=== PATIENT | female | born 1990 | race American Indian/Alaskan Native ===

== ENCOUNTER 2022-02-01 00:24 | Emergency (ER) | payer SELFPAY ==
[2022-02-01] MEDS ORDERED: ALBUTEROL 2.5 MG/3 ML NEBU IH ONE ×3 (00:43→03:09)
[2022-02-01] MEDS ORDERED: IPRATROPIUM 0.02% NEBU 2.5 ML IH ONE ×2 (00:43→01:00)
[2022-02-01] MEDS ORDERED: SODIUM CHLORIDE 0.9% 1000 ML 1,000 ML IV ONE (01:00)
[2022-02-01 01:40] LABS: Alanine Aminotransferase 11 units/L (7-56); Albumin 4.4 g/dL (3.9-5); Blood Urea Nitrogen 5 mg/dL (7-17); Calcium 9.3 mg/dL (8.4-10.2); Hemolysis Index 2
[2022-02-01 01:42] LABS: BUN/Creatinine Ratio 8
[2022-02-01 01:50] LABS: Basophils % (Auto) 0.5 % (0.0-1.8); Eosinophils # (Auto) 0.1 K/mm3 (0.0-0.4); Eosinophils % (Auto) 1.8 % (0.0-4.3); Hematocrit 32.9 % (30.3-42.9); Hemoglobin 11.2 gm/dl (10.1-14.3); Lymphocytes # (Auto) 0.5 K/mm3 (1.2-5.4); Lymphocytes % (Auto) 7.9 % (13.4-35.0); Mean Corpuscular HGB Conc 34 % (30-34); Monocytes # (Auto) 0.4 K/mm3 (0.0-0.8); Monocytes % (Auto) 5.5 % (0.0-7.3); Platelet Count 302 K/mm3 (140-440); Red Blood Count 4.82 M/mm3 (3.65-5.03); Red Cell Distribution Width 18.6 % (13.2-15.2)
[2022-02-01 02:05] LABS: Mean Corpuscular Volume 68 fl (79-97)
--- NOTE | 2022-02-01 02:18 | XRay Report ---
CHEST 1 VIEW 02/01/2022 12:36 AM INDICATION / CLINICAL INFORMATION: Asthma. COMPARISON: None available. FINDINGS: SUPPORT DEVICES: None. HEART / MEDIASTINUM: No significant abnormality. LUNGS / PLEURA: No significant pulmonary abnormality. No significant pleural effusion. No pneumothora x. ADDITIONAL FINDINGS: No significant additional findings. IMPRESSION: 1. No acute abnormality of the chest. Signer Name: Hamilton Valencia MD Signed: 02/01/2022 2:14 AM Workstation Name: [id number]
--- NOTE | 2022-02-01 04:21 | Emergency Department Report ---
ED Asthma HPI - General Chief Complaint: Adult Asthma Stated Complaint: SOB Time Seen by Provider: 02/01/22 00:59 Source: patient, EMS Mode of arrival: Stretcher Limitations: No Limitations - History of Present Illness Initial Comments: Asthma symptoms (wheezing and ESTUARDO) Ran out of inhaler today. Was given Decadron 10mg IV and Albuterol 10mg Neb. Continues to wheeze. MD Complaint: "asthma attack", shortness of breath -: Gradual, days(s) - Related Data Allergies Allergy/AdvReac Type Severity Reaction Status Date / Time No Known Allergies Allergy Verified 02/01/22 02:28 ED Review of Systems ROS: Stated complaint: SOB Other details as noted in HPI ED Past Medical Hx - Past Medical History Previous Medical History?: Yes Hx Asthma: Yes - Surgical History Past Surgical History?: Yes Additional Surgical History: x 2 - Social History Smoking Status: Current Every Day Smoker Substance Use Type: None ED Physical Exam - General Limitations: No Limitations General appearance: alert, in no apparent distress - Head Head exam: Present: atraumatic, normocephalic - Eye Eye exam: Present: normal appearance - ENT ENT exam: Present: mucous membranes moist - Neck Neck exam: Present: normal inspection - Respiratory Respiratory exam: Present: normal lung sounds bilaterally, wheezes. Absent: respiratory distress - Cardiovascular Cardiovascular Exam: Present: regular rate, normal rhythm. Absent: systolic murmur, diastolic murmur, rubs, gallop - GI/Abdominal GI/Abdominal exam: Present: soft, normal bowel sounds - Extremities Exam Extremities exam: Present: normal inspection - Back Exam Back exam: Present: normal inspection - Neurological Exam Neurological exam: Present: alert, oriented X3 - Psychiatric Psychiatric exam: Present: normal affect, normal mood - Skin Skin exam: Present: warm, dry, intact, normal color. Absent: rash ED Course Vital Signs 02/01/22 02/01/22 02/01/22 00:40 03:07 03:25 Temperature 98 F Pulse Rate 111 H Pulse Rate [ 111 H 112 H Bilateral Throughout] Respiratory 18 Rate Respiratory 20 20 Rate [Bilateral Throughout] Blood Pressure 123/85 O2 Sat by Pulse 95 Oximetry ED Medical Decision Making - Lab Data Result diagrams: 02/01/22 01:07 02/01/22 01:07 Critical care attestation.: If time is entered above; I have spent that time in minutes in the direct care of this critically ill patient, excluding procedure time. ED Disposition Clinical Impression: Asthma exacerbation Disposition: 01 HOME / SELF CARE / HOMELESS Is pt being admited?: No Does the pt Need Aspirin: No Condition: Stable Instructions: Asthma, Adult
[2022-02-01 06:32] VITALS: BP 134/67
== END 2022-02-01 06:32 | disposition home or self-care (01) ==
LOC: ED 00:24
DX: J45.901 Unspecified asthma with (acute) exacerbation (principal); F17.200 Nicotine dependence, unspecified, uncomplicated
CPT/HCPCS: 36415; 71045; 80053; 84484; 85025; 94640; 94644; 96360; 96361; 99284; J7030

== ENCOUNTER 2022-02-16 16:33 | Emergency (ER) | payer SELFPAY ==
[2022-02-16 18:04] LABS: Hematocrit 35.4 % (30.3-42.9); Hemoglobin 12.1 gm/dl (10.1-14.3); Mean Corpuscular HGB Conc 34 % (30-34); Mean Corpuscular Volume 66 fl (79-97); Platelet Count 358 K/mm3 (140-440); Red Blood Count 5.34 M/mm3 (3.65-5.03); Red Cell Distribution Width 18.6 % (13.2-15.2)
[2022-02-16 18:09] LABS: Alanine Aminotransferase 63 units/L (7-56); Albumin 4.4 g/dL (3.9-5); Blood Urea Nitrogen 6 mg/dL (7-17); Calcium 9.6 mg/dL (8.4-10.2); Hemolysis Index 3
[2022-02-16 18:13] LABS: BUN/Creatinine Ratio 10
[2022-02-16 18:19] LABS: Bilirubin,Urine NEG (Negative); Blood,Urine NEG (Negative); Color,Urine Yellow (Yellow); Mucus,Urine 2+ /HPF
[2022-02-16 18:32] LABS: Basophils % (Manual) 0 % (0.0-1.8); Total Cells Counted 100
[2022-02-16 18:33] LABS: Anisocytosis 1+; Hypochromasia 1+; Platelet Estimate Consistent w Auto; Smudge Cells Few
[2022-02-16] MEDS ORDERED: FAMOTIDINE 20 MG TAB PO ONE (20:54)
[2022-02-16] MEDS ORDERED: DICYCLOMINE 20 MG TAB PO ONE (20:54)
[2022-02-16] MEDS ORDERED: ONDANSETRON 4 MG ODT TAB PO ONE (20:54)
--- NOTE | 2022-02-16 21:20 | Emergency Department Report ---
ED N/V/D HPI - General Chief complaint: Nausea/Vomiting/Diarrhea Stated complaint: UPPER STOMACH PAIN/VOMITING DIARRAH Source: patient Mode of arrival: Ambulatory Limitations: No Limitations - History of Present Illness Initial comments: Patient is a 31-year-old -[place] female with past medical history of asthma who presents to the ED with complaint of acute onset persistent nausea and vomiting with abdominal pain diffusely for the last 5 days. Patient also complains of diarrhea for the last 10 days. Patient states that he is fianc also had similar symptoms but for longer periods of time. Patient states that in the last 24 hours he has had 2 episodes of nausea and vomiting and that he has not been able to keep anything down. Patient denies fever, chills, d izziness, syncope, chest pain, shortness of breath, dysuria, testicular pain, hematuria or low back pain and headache. MD complaint: nausea, vomiting, diarrhea, abdominal pain -: Sudden, days(s) (5) Description of Vomiting: food contents, watery, bilious Description of Diarrhea: water Associated Abdominal Pain: Yes (Mild and diffuse) Location: diffuse Radiation: none Severity: mild Pain Scale: 2 Quality: aching, dull Consistency: intermittent Improves with: none Worsens with: eating, vomiting Context: possible food poisoning, sick contacts Associated Symptoms: denies other symptoms, nausea/vomiting. denies: myalgias, chest pain, cough, diaphoresis, fever/chills, headaches, loss of appetite, malaise, rash, dysuria, shortness of breath, syncope, weakness - Related Data Previous Rx's Medication Instructions Recorded Last Taken Type Albuterol Mdi (or & Nicu Only) 2 puff IH QID PRN #8.5 gram 02/01/22 Unknown Rx [ProAir HFA Inhaler] methylPREDNISolone [Medrol 4MG 4 mg PO DAILY #1 02/01/22 Unknown Rx DOSEPAK (21 tabs)] Dicyclomine [Bentyl] 20 mg PO Q6H PRN #24 tablet 02/16/22 Unknown Rx Ondansetron [Zofran Odt] 4 mg PO Q8HR PRN #20 tab.rapdis 02/16/22 Unknown Rx Allergies Allergy/AdvReac Type Severity Reaction Status Date / Time No Known Allergies Allergy Verified 02/01/22 02:28 ED Review of Systems ROS: Stated complaint: UPPER STOMACH PAIN/VOMITING DIARRAH Other details as noted in HPI Constitutional: denies: chills, fever Eyes: denies: eye pain, eye discharge, vision change ENT: denies: ear pain, throat pain Respiratory: denies: cough, shortness of breath, wheezing Cardiovascular: denies: chest pain, palpitations Endocrine: no symptoms reported Gastrointestinal: abdominal pain, nausea, vomiting, diarrhea Genitourinary: denies: urgency, dysuria, discharge Musculoskeletal: denies: back pain, joint swelling, arthralgia Skin: denies: rash, lesions Neurological: denies: headache, weakness, paresthesias Psychiatric: denies: anxiety, depression Hematological/Lymphatic: denies: easy bleeding, easy bruising ED Past Medical Hx - Past Medical History Previous Medical History?: Yes Hx Asthma: Yes - Surgical History Past Surgical History?: Yes Additional Surgical History: x 2, - Social History Smoking Status: Current Every Day Smoker Substance Use Type: None - Medications Home Medications: Home Medications Medication Instructions Recorded Confirmed Last Taken Type Albuterol Mdi (or & Nicu Only) 2 puff IH QID PRN #8.5 gram 02/01/22 Unknown Rx [ProAir HFA Inhaler] methylPREDNISolone [Medrol 4MG 4 mg PO DAILY #1 02/01/22 Unknown Rx DOSEPAK (21 tabs)] Dicyclomine [Bentyl] 20 mg PO Q6H PRN #24 tablet 02/16/22 Unknown Rx Ondansetron [Zofran Odt] 4 mg PO Q8HR PRN #20 tab.rapdis 02/16/22 Unknown Rx ED Physical Exam - General Limitations: No Limitations General appearance: alert, in no apparent distress - Head Head exam: Present: atraumatic, normocephalic, normal inspection - Eye Eye exam: Present: normal appearance, PERRL, EOMI Pupils: Present: normal accommodation - ENT ENT exam: Present: normal exam, normal orophraynx, mucous membranes moist, TM's normal bilaterally, normal external ear exam - Neck Neck exam: Present: normal inspection, full ROM. Absent: tenderness - Respiratory Respiratory exam: Present: normal lung sounds bilaterally. Absent: respiratory distress, wheezes, rhonchi, stridor, chest wall tenderness, accessory muscle use, decreased breath sounds, prolonged expiratory - Cardiovascular Cardiovascular Exam: Present: regular rate, normal rhythm, normal heart sounds. Absent: systolic murmur, diastolic murmur, rubs, gallop - GI/Abdominal GI/Abdominal exam: Present: soft, normal bowel sounds. Absent: tenderness, guarding, rebound, hyperactive bowel sounds, hypoactive bowel sounds - Extremities Exam Extremities exam: Present: normal inspection, full ROM, normal capillary refill. Absent: tenderness - Back Exam Back exam: Present: normal inspection, full ROM. Absent: tenderness, CVA tenderness (R), CVA tenderness (L), muscle spasm, paraspinal tenderness, vertebral tenderness - Neurological Exam Neurological exam: Present: alert, oriented X3, CN II-XII intact, normal gait, reflexes normal - Psychiatric Psychiatric exam: Present: normal affect, normal mood - Skin Skin exam: Present: warm, dry, intact, normal color. Absent: rash ED Course Vital Signs 02/16/22 16:50 Temperature 98.8 F Pulse Rate 97 H Respiratory 20 Rate Blood Pressure 119/56 [Right] O2 Sat by Pulse 96 Oximetry ED Medical Decision Making - Lab Data Result diagrams: 02/16/22 17:33 02/16/22 17:33 - Medical Decision Making This is a 31-year-old -[place] female with past medical history of asthma who presents to the ED with complaint of acute onset persistent nausea and vomiting with abdominal pain diffusely for the last 5 days. Patient also complains of diarrhea for the last 10 days. Patient states that he is fianc also had similar symptoms but for longer periods of time. Patient states that in the last 24 hours he has had 2 episodes of nausea and vomiting and that he has not been able to keep anything down. In the ED, patient is alert and oriented x3 and is not in any distress. Patient is hemodynamically stable. Patient was treated in the ED for nausea and vomiting. Lab test results were reviewed and are all nonactionable. Patient's symptoms are likely viral based on the etiology and the symptoms. On reevaluation, patient felt better and was discharged home on medications. Patient was advised to maintain a clear liquid diet for 12 to 24 hours, take medications and drink plenty of fluids and follow- up with her primary care physician in 5 to 7 days for reevaluation. Patient is advised return to the ED immediately if symptoms get worse. - Differential Diagnosis Viral gastroenteritis; dehydration; GERD; Critical care attestation.: If time is entered above; I have spent that time in minutes in the direct care of this critically ill patient, excluding procedure time. ED Disposition Clinical Impression: Nausea, vomiting and diarrhea, Viral gastroenteritis Disposition: HOME / SELF CARE / HOMELESS Is pt being admited?: No Does the pt Need Aspirin: No Condition: Stable Instructions: Diarrhea, Adult, [id number], Nausea and Vomiting, Adult, [id number], Viral Gastroenteritis, Adult, [id number] Additional Instructions: Maintain a clear liquid diet for 12 to 24 hours, drink plenty of fluids, take medication as needed and follow-up with your primary care physician in 5 to 7 days for reevaluation. Return to the ED immediately if symptoms get worse. Prescriptions: Dicyclomine [Bentyl] 20 mg PO Q6H PRN #24 tablet PRN Reason: Abdominal pain Ondansetron [Zofran Odt] 4 mg PO Q8HR PRN #20 tab.rapdis PRN Reason: Nausea Referrals: [facility] [Provider Group] - 3-5 Days Forms: Work/School Release Form(ED) Time of Disposition: 21:21 Print Language: WALLIS[place]
[2022-02-16 21:29] VITALS: BP 120/60
== END 2022-02-16 21:28 | disposition home or self-care (01) ==
LOC: ED 16:33
DX: R10.84 Generalized abdominal pain (principal); A08.4 Viral intestinal infection, unspecified; J45.909 Unspecified asthma, uncomplicated; F17.200 Nicotine dependence, unspecified, uncomplicated; Z98.890 Other specified postprocedural states; Z79.899 Other long term (current) drug therapy
CPT/HCPCS: 36415; 80053; 81001; 85007; 85025; 99283; J3490; Q0162